=== PATIENT | male | born 1985 | race Caucasian/White ===

== ENCOUNTER 2018-07-31 06:22 | Emergency (ER) | payer SELFPAY ==
[2018-07-31] MEDS ORDERED: Lidocaine 1% w/Epinephrine 1:100K 20 ML VIAL ONE (06:30)
[2018-07-31] MEDS ORDERED: Adacel (T-DAP) 0.5 ML SYRINGE ONE (06:39)
[2018-07-31] MEDS ORDERED: Sodium Chloride Irrig Solution 250 ML BOT ONE (07:17)
[2018-07-31] MEDS ORDERED: Bacitracin Zinc 1 Packet ONE (07:32)
--- NOTE | 2018-07-31 07:39 | RAD ---
Right wrist: 3 views HISTORY: Injury Soft tissue lacerations seen medially at the wrist. No fracture or osseous abnormality. There are 2 o r 3 radiopaque densities at the laceration site which could represent foreign material.
[2018-07-31] MEDS ORDERED: Cephalexin 500 MG CAP ONE (07:44)
[2018-07-31] MEDS ORDERED: HYDROcodone/Acetaminophen 5/325 mg Tablet ONE (07:57)
[2018-07-31] MEDS ORDERED: cefTRIAXone\\ROCEPHIN 1 GM VIAL ONE (11:20)
== END 2018-07-31 08:50 | disposition home or self-care (01) ==
LOC: MADERS 06:22
DX: S66.921A Laceration of unspecified muscle, fascia and tendon at wrist and hand level, right hand, initial encounter (principal); S64.01XA Injury of ulnar nerve at wrist and hand level of right arm, initial encounter; Z23 Encounter for immunization; W18.09XA Striking against other object with subsequent fall, initial encounter; W45.8XXA Other foreign body or object entering through skin, initial encounter
CPT/HCPCS: 12002; 90471; 90715; J0696; J2001

== ENCOUNTER 2019-06-29 07:33 | Emergency (ER) | payer SELFPAY ==
[~2019-06-29 07:33] MED LIST: Sterile Water Irrigation 1,000 ML BOT ONE
[2019-06-29] MEDS ORDERED: Adacel (T-DAP) 0.5 ML SYRINGE ONE (08:16)
[2019-06-29] MEDS ORDERED: Lidocaine 1% w/Epinephrine 1:100K 20 ML VIAL ONE (08:16)
== END 2019-06-29 08:40 | disposition home or self-care (01) ==
LOC: MADERS 07:33
DX: S81.812A Laceration without foreign body, left lower leg, initial encounter (principal); F17.220 Nicotine dependence, chewing tobacco, uncomplicated; M41.9 Scoliosis, unspecified; Z79.899 Other long term (current) drug therapy; W26.8XXA Contact with other sharp object(s), not elsewhere classified, initial encounter
CPT/HCPCS: 12002; 90471; 90715

== ENCOUNTER 2019-07-17 21:40 | Emergency (ER) | payer SELFPAY ==
[2019-07-17] MEDS ORDERED: Cephalexin 500 MG CAP ONE (22:09)
== END 2019-07-17 22:24 | disposition home or self-care (01) ==
LOC: MADERS 21:40
DX: F32.9 Major depressive disorder, single episode, unspecified (principal); S80.922A Unspecified superficial injury of left lower leg, initial encounter; F41.9 Anxiety disorder, unspecified; F17.220 Nicotine dependence, chewing tobacco, uncomplicated; Z79.899 Other long term (current) drug therapy
CPT/HCPCS: 99284